=== PATIENT | male | born 1930 | race Caucasian/White ===

== ENCOUNTER → 2017-08-30 | Outpatient (CLI) | payer MEDICARE ==
[~2017-08-30] VITALS: Ht 33 cm; Wt 0.5 kg
[~2017-08-30] MED LIST: ADENOSINE 75 MG in GIVE UN-DILUTED 0 ML IV ONE; ADENOSINE 90 MG/30 ML INJ IV ONE; ASPI-231; EZET10TA2; MULTCAP; PLAVIX; TRIA37.561; [UNRECOGNIZED DRUG - CODE]
== END | disposition home or self-care (01) ==
LOC: Rad HDHVI 13:56
PROVIDERS: ATTEND Internal Medicine Cardiovascular Disease
DX: I50.33 Acute on chronic diastolic (congestive) heart failure (principal); E55.9 Vitamin D deficiency, unspecified; N40.0 Benign prostatic hyperplasia without lower urinary tract symptoms; E78.00 Pure hypercholesterolemia, unspecified; R07.89 Other chest pain; Z95.1 Presence of aortocoronary bypass graft
CPT/HCPCS: 78452; 82306; 93005; 93306; 96374; 96375; A9500; J0153

== ENCOUNTER → 2019-05-22 | Outpatient (CLI) | payer MEDICARE ==
[~2019-05-22] MED LIST changes: -ADENOSINE 75 MG in GIVE UN-DILUTED 0 ML IV ONE; -ADENOSINE 90 MG/30 ML INJ IV ONE; +DILT-10; -EZET10TA2; +EZET10TA22; -[UNRECOGNIZED DRUG - CODE]
== END | disposition home or self-care (01) ==
LOC: Rad HDHVI 07:51
PROVIDERS: ATTEND Internal Medicine Cardiovascular Disease
DX: I08.2 Rheumatic disorders of both aortic and tricuspid valves (principal)
CPT/HCPCS: 93306